=== PATIENT | female | born 1950 | race Caucasian/White ===

== ENCOUNTER 2019-06-25 08:06 | Outpatient (CLI) | payer MEDICARE, SELFPAY ==
--- NOTE | ~2019-06-25 | MM_ITS ---
EXAMINATION: MM screening [facility] BI w cathie HISTORY: Screening mammogram TECHNIQUE: Craniocaudal and mediolateral oblique 3-D tomosynthesis images were obtained and synthetic 2-D images were generated. CAD analysis was submitted and interpreted. COMPARISON: 10/11/2016, 09/15/2015, 09/02/2014 BREAST PARENCHYMAL COMPOSITION: There are scattered areas of fibroglandular density. FINDINGS: There is no evidence of suspicious mass, calcification, or architectural distortion to sugg est malignancy in either breast. There has been no suspicious interval change. IMPRESSION: 1. No mammographic evidence of malignancy. 2. Recommend routine screening mammography in one year. BI-RADS Category 1: Negative Reviewed, dictated and finalized at location A. O JOURNALIST
--- NOTE | ~2019-06-25 | DEXA_ITS ---
Bone Density Report Name: Manju Bedolla Age: 68 Sex: Female Ethnicity: White Date of : 1950 Indication: osteopenia; parental hip fracture; height loss; Referring Provider: Maurizio Bustamante Study: Bone densitometry was performed. Exam Date: June 25, 2019 Accession number: [id number] Bone Density: Region BMD T-score Z-score Classification AP Spine (L1-L4) 0.765 -2.6 -0.6 Osteoporosis Femoral Neck (Left) 0.578 -2.4 -0.8 Osteopenia Total Hip (Left) 0.754 -1.5 -0.2 Osteopenia Total Hip Bilateral Avg 0.750 -1.6 -0.3 Osteopenia Femoral Neck (Right) 0.621 -2.1 -0.4 Osteopenia Total Hip (Right) 0.744 -1.6 -0.3 Osteopenia World Health Organization criteria for BMD impression classify patients as: Normal (T-score at or above -1.0), Osteopenia (T-score between -1.0 and -2.5), or Osteoporosis (T-score at or below -2.5). 10-year Fracture Risk: FRAX not reported because: Some T-score for Spine Total or Hip Total or Femoral Neck at or below -2.5 Previous Exams: Region Exam Age BMD T-score BMD Change BMD Change Date g/cm2 vs Baseline vs Previous AP Spine(L1-L4) 06/25/2019 68 0.765 -2.6 -0.089(-10.4%) -0.020(-2.6%)# 10/20/2015 64 0.785 -2.4 -0.069(-8.1%)# -0.064(-7.6%)# 05/18/2010 59 0.849 -1.8 -0.005(-0.6%) -0.005(-0.6%) 03/08/2008 57 0.854 -1.8 Total Hip(Left) 06/25/2019 68 0.754 -1.5 -0.046(-5.8%)# -0.031(-3.9%)# 10/20/2015 64 0.784 -1.3 -0.016(-1.9%)# -0.010(-1.3%)# 05/18/2010 59 0.795 -1.2 -0.005(-0.7%) -0.005(-0.7%) 03/08/2008 57 0.800 -1.2 Total Hip(Right) 06/25/2019 68 0.744 -1.6 -0.037(-4.7%)# -0.022(-2.8%)# 10/20/2015 64 0.766 -1.4 -0.015(-2.0%)# -0.027(-3.4%)# 05/18/2010 59 0.792 -1.2 0.011(1.4%) 0.011(1.4%) 03/08/2008 57 0.781 -1.3 *Denotes significance at 95% confidence level, LSC for AP Spine = 0.022 g/cm2, LSC for Total Hip = 0.027 g/cm2 Clinical Information Provided by Patient: Parent has had a hip fracture Has used the following medications: Vitamin D, Calcium Patient maximum height was 64 Menopause Age: 56 No regular weight bearing exercise Drinks caffeinated beverages Onset of menses at age 15 Number of children 0 Impression: The patient has osteoporosis, based on the Total Spine T-score. The patient has risk factors, including: parental hip fracture. No significant bone loss was observed. Discussion: INCREASED RISK OF FRACTURE. BONE DENSITY IS UNDESIRABL
== END 2019-06-25 08:07 | disposition home or self-care (01) ==
LOC: ANHIMG 08:15
PROVIDERS: PCP Family Medicine; Visit Provider Physician Assistant Medical
DX: Z12.31 Encounter for screening mammogram for malignant neoplasm of breast (principal); Z78.0 Asymptomatic menopausal state; M85.89 Other specified disorders of bone density and structure, multiple sites; M81.0 Age-related osteoporosis without current pathological fracture
CPT/HCPCS: 77063; 77067; 77080

== ENCOUNTER 2021-02-09 07:55 | Outpatient (CLI) | payer MEDICARE, SELFPAY ==
--- NOTE | ~2021-02-09 | MM_ITS ---
EXAMINATION: MM screening [facility] BI w cathie HISTORY: Screening mammogram TECHNIQUE: Craniocaudal and mediolateral oblique 3-D tomosynthesis images were obtained and synthetic 2-D images were generated. CAD analysis was submitted and interpreted. COMPARISON: 06/25/2019, 10/11/2016, 09/15/2015 BREAST PARENCHYMAL COMPOSITION: There are scattered areas of fibroglandular density. FINDINGS: There is no evidence of suspicious mass, calcification, or architectural distortion to sugg est malignancy in either breast. There has been no suspicious interval change. IMPRESSION: 1. No mammographic evidence of malignancy. 2. Recommend routine screening mammography in one year. BI-RADS Category 1: Negative Reviewed, dictated and finalized at location A.
== END 2021-02-09 07:56 | disposition home or self-care (01) ==
LOC: ANHIMG 08:00
PROVIDERS: PCP Family Medicine; Visit Provider Physician Assistant Medical
DX: Z12.31 Encounter for screening mammogram for malignant neoplasm of breast (principal)
CPT/HCPCS: 77063; 77067

== ENCOUNTER 2021-12-21 14:42 | Outpatient (CLI) | payer MEDICARE, SELFPAY ==
--- NOTE | ~2021-12-21 | DEXA_ITS ---
Bone Density Report Name: GUERDA MUJICA Age: 71 Sex: Female Ethnicity: White Date of : 1950 Indication: postmenopausal osteoporosis; height loss; Referring Provider: PASCALE PAUL Study: Bone densitometry was performed. Exam Date: December 21, 2021 Accession number: [id number] Bone Density: Region BMD T-score Z-score Classification AP Spine(L1-L4) 0.780 -2.4 -0.3 Osteopenia Femoral Neck (Left) 0.605 -2.2 -0.4 Osteopenia Total Hip (Left) 0.721 -1.8 -0.3 Osteopenia Femoral Neck (Right) 0.609 -2.2 -0.4 Osteopenia Total Hip (Right) 0.726 -1.8 -0.3 Osteopenia Total Hip Mean 0.724 -1.8 -0.3 Osteopenia World Health Organization criteria for BMD impression classify patients as: Normal (T-score at or above -1.0), Osteopenia (T-score between -1.0 and -2.5), or Osteoporosis (T-score at or below -2.5). 10-year Fracture Risk(1): Major Osteoporotic Fracture 12% Hip Fracture 2.4% Reported Risk Factors: [place] (), Neck BMD=0.605, BMI=31.5 (1) FRAX(R) Version 3.08. Fracture probability calculated for an untreated patient. Fracture probability may be lower if the patient has received treatment. Previous Exams: Region Exam Age BMD T-score BMD Change BMD Change Date g/cm2 vs Baseline vs Previous AP Spine (L1-L4) 12/21/2021 71 0.780 -2.4 -0.005 (-0.6%) 0.015 (2.0%) 06/25/2019 68 0.765 -2.6 -0.020 (-2.6%) -0.020 (-2.6%) 10/20/2015 64 0.785 -2.4 Total Hip(Left) 12/21/2021 71 0.721 -1.8 -0.063 (-8.0%) -0.032 (-4.3%) 06/25/2019 68 0.754 -1.5 -0.031 (-3.9%) -0.031 (-3.9%) 10/20/2015 64 0.784 -1.3 Total Hip(Right) 12/21/2021 71 0.726 -1.8 -0.040 (-5.2%) -0.018 (-2.5%) 06/25/2019 68 0.744 -1.6 -0.022 (-2.8%) -0.022 (-2.8%) 10/20/2015 64 0.766 -1.4 *Denotes significance at 95% confidence level, LSC for AP Spine = 0.022 g/cm2, LSC for Total Hip = 0.027 g/cm2 # Denotes dissimilar scan types or analysis methods Clinical Information Provided by Patient: Has used the following medications: Vitamin D, Calcium Patient maximum height was 64 Menopause Age: 56 Drinks caffeinated beverages Onset of menses at age 13 Number of children 0 Impression: The patient has low bone mass, based on the Total Spine T-score. The patient has an estimated ten-year risk of hip fracture of 2.4% and an estimated ten-year risk of major fracture of 12%, based on the WHO FRAX algorithm. The BMD for
== END 2021-12-21 14:43 | disposition home or self-care (01) ==
LOC: ANHIMG 14:43
PROVIDERS: PCP Family Medicine; Visit Provider Family Medicine
DX: M81.0 Age-related osteoporosis without current pathological fracture (principal); N95.9 Unspecified menopausal and perimenopausal disorder; M85.88 Other specified disorders of bone density and structure, other site; M85.852 Other specified disorders of bone density and structure, left thigh; M85.851 Other specified disorders of bone density and structure, right thigh
CPT/HCPCS: 77080

== ENCOUNTER 2022-05-31 08:03 | Outpatient (CLI) | payer MEDICARE, SELFPAY ==
--- NOTE | ~2022-05-31 | MM_ITS ---
EXAMINATION: MM screening [facility] BI w cathie HISTORY: Screening mammogram TECHNIQUE: Craniocaudal and mediolateral oblique 3-D tomosynthesis images were obtained and synthetic 2-D images were generated. CAD analysis was submitted and interpreted. COMPARISON: 02/2021, 06/25/2019, 10/11/2016 bilateral screening mammogram examinations BREAST PARENCHYMAL COMPOSITION: There are scattered areas of fibroglandular density. FINDINGS: There is no evidence of suspicious mass, calcification, or architectural distortion to sugg est malignancy in either breast. There has been no suspicious interval change. IMPRESSION: 1. No mammographic evidence of malignancy. 2. Recommend routine screening mammography in one year. BI-RADS Category 1: Negative Reviewed, dictated and finalized at location C. CENTER CONSULTANT
== END 2022-05-31 08:04 | disposition home or self-care (01) ==
LOC: ANHIMG 08:06
PROVIDERS: PCP Family Medicine; Visit Provider Family Medicine
DX: Z12.31 Encounter for screening mammogram for malignant neoplasm of breast (principal)
CPT/HCPCS: 77063; 77067

== ENCOUNTER 2023-07-28 15:28 | Outpatient (CLI) | payer MEDICARE, SELFPAY ==
--- NOTE | ~2023-07-28 | MM_ITS ---
EXAMINATION: MM screening [facility] BI w cathie HISTORY: Screening TECHNIQUE: Craniocaudal and mediolateral oblique 3-D tomosynthesis images were obtained and synthetic 2-D images were generated. CAD analysis was submitted and interpreted. COMPARISON: Comparison to multiple prior studies sequentially, with oldest reviewed study dated 01/2016. BREAST PARENCHYMAL COMPOSITION: Not dense: There are scattered areas of fibroglandular density. FINDINGS: There is a low-density mass in the lower outer quadrant of the left breast anteriorly. The right breast is stable without evidence for malignancy. IMPRESSION: 1. Low-density left breast mass. 2. Additional mammographic views and possible breast ultrasound are recommended. BI-RADS CATEGORY 0 - INCOMPLETE STUDY, NEED ADDITIONAL IMAGING EVALUATION. Reviewed, dictated and finalized at location A. IMPRESSION: 1. Low-density left breast mass. 2. Additional mammographic views and possible breast ultrasound are recommended . BI-RADS CATEGORY 0 - INCOMPLETE STUDY, NEED ADDITIONAL IMAGING EVALUATION.
== END 2023-07-28 15:29 | disposition home or self-care (01) ==
PROVIDERS: PCP Family Medicine; Visit Provider Family Medicine
DX: Z12.31 Encounter for screening mammogram for malignant neoplasm of breast (principal); R92.8 Other abnormal and inconclusive findings on diagnostic imaging of breast
CPT/HCPCS: 77063; 77067

== ENCOUNTER 2023-08-26 12:21 | Outpatient (CLI) | payer MEDICARE, SELFPAY ==
--- NOTE | ~2023-08-26 | MMUS_ITS ---
EXAMINATION: MM diagnostic [facility] LT w cathie, US breast LT limited HISTORY: Follow-up left breast asymmetry TECHNIQUE: Additional 3-D tomosynthesis images of the left breast were performed and synthetic 2-D im ages were generated. CAD analysis was submitted and interpreted. High resolution Limited left breast ultrasound was performed. COMPARISON: 07/28/2023 BREAST PARENCHYMAL COMPOSITION: Not dense: There are scattered areas of fibroglandular density. FINDINGS: MAMMOGRAPHIC FINDINGS: Area of asymmetry is less dense with spot compression views, likely superimposed fibroglandular tissu e. No discrete mass or architectural distortion. There are no suspicious calcifications. ULTRASOUND: Limited left breast ultrasound: Normal heterogeneous echotexture without focal solid or cystic mass. IMPRESSION: 1. No evidence for malignancy in the left breast. 2. Routine yearly screening mammogram and regular clinical breast examination are recommended. BI-RADS Category 1: Negative Reviewed, dictated and finalized at location B. IMPRESSION: 1. No evidence for malignancy in the left breast. 2. Routine yearly screening mammogram and regular clinical breast examination a re recommended. BI-RADS Category 1: Negative
== END 2023-08-26 12:22 | disposition home or self-care (01) ==
LOC: ANHIMG 12:23
PROVIDERS: PCP Family Medicine; Visit Provider Family Medicine
DX: R92.8 Other abnormal and inconclusive findings on diagnostic imaging of breast (principal)
CPT/HCPCS: 76642; 77061; 77065; G0279

== ENCOUNTER 2024-04-16 18:28 | Emergency (ER) | payer MEDICARE, SELFPAY ==
--- NOTE | 2024-04-16 18:29 | ED_ITS ---
HPI - URI/Sore Throat General Chief Complaint: Upper Respiratory Infection Stated Complaint: Upper Respiratory Symptoms Time Seen by Provider: 04/16/24 18:29 Source: patient Mode of arrival: ambulatory Limitations: no limitations History of Present Illness HPI Narrative: Manju is a 73-year-old female patient presenting to the clinic today with complaints of possible upper respiratory infection. She reports she has had symptoms for approximately 8 days. Complaints of chest congestion, cough, and sinus pressure. Does feel short of breath when coughing. No Fever or chills. She is coughing some yellow phlegm. No history of COPD or asthma. MD elicited complaint: sore throat and nasal congestion Related Data Home Medications Medication Instructions Recorded Confirmed ascorbate calcium (vitamin C) 500 500 mg PO DAILY 04/18/19 12/13/23 mg tablet aspirin 81 mg tablet,delayed 81 mg PO DAILY 04/18/19 12/13/23 release (Aspir-) calcium carbonate (Calcium 500) 500 mg PO DAILY 04/18/19 12/13/23 multivitamin 1 cap PO DAILY 04/18/19 12/13/23 omega-3 fatty acids-vitamin E mg PO 04/18/19 12/13/23 1,000 mg capsule zinc 50 mg tablet (Chelated Zinc) 50 mg PO DAILY 04/18/19 12/13/23 magnesium 250 mg tablet 250 mg PO DAILY 05/27/20 12/13/23 Allergies Allergy/AdvReac Type Severity Reaction Status Date / Time No Known Allergies Allergy Verified 12/13/23 13:13 Review of Systems Review of Systems: Pertinent positives per HPI. Patient denies any fever, chills, rash, headache, visual changes, dizziness, chest pain, palpitations, nausea, vomiting, diarrhea, constipation, abdominal pain, or any urinary issues. [facility] Past Medical History Medical History Allergic rhinitis, cause unspecified [facility] Surgical History Surgical History H/O laparoscopy Family History Family History Grandparent Diabetes mellitus Mother Diabetes mellitus Depression Family history of elevated blood lipids Family history of dementia Father Hypertension Family history of elevated blood lipids Family history of cardiovascular disease Acute myocardial infarction Family history of malignant neoplasm of bone Family history of coronary artery disease Social History Social History Smoking status: Never smoker Second hand tobacco smoke exposure: No Alcohol intake: current Alcohol use details: occasionally Substance use: never Substance use type: does not use Do You Feel Safe in your Home?: Yes Lack of Transportation: No Lack of Food: Never True Current Housing: I Have Housing Concerned About Future Housing: No Difficulty Paying Gas/Electric Bills: No Difficulty Paying for Meds: No Currently Unemployed: No Education: High School Diploma/GED Difficulty w/ Childcare or Family Care: No Living arrangements: with family Occupation/Education: occupation Gender identity (if verbalized by the patient): Female Spiritual care concerns: Yes (Nondenominational) Agree to blood products: Yes Comments At the time of my signature, I reviewed and agree with the nursing past medical, surgical, social, and family history. There is no relevant family history pertinent to the patient complaint. Exam Narrative: General: Well-developed, well nourished, in no apparent distress Head: Normocephalic, atraumatic Eyes: Pupils equally round and reactive to light bilaterally, EOM intact, sclera and conjunctive clear, no discharge, lids normal Ears: TMs intact and clear, ear canals clear, no drainage, grossly hearing normal. Nose: Nares patent, clear nasal discharge, no inflammation, no sinus tenderness. Mouth: Oral pharynx without lesions or masses, good dentition, MMM. Neck: Supple, trachea midline, no enlargement of anterior or posterior cervical nodes, no thyroid masses or goiter palpable. Cardio: Regular rate and rhythm, s1 and s2 normal, no murmur appreciated. Resp: Clear to auscultation bilaterally, no rhonchi, rales, wheezing or rubs Course Course Emergency Course: Portions of this record may have been created with voice recognition software. Level of Care: Express Care Visit Vital Signs Vital signs: Vital signs reviewed MDM - URI/Sore Throat MDM Narrative Medical decision making narrative: At the time of visit patient is resting comfortably on the exam table. Patient appears to be nontoxic. Plan: I suspect patient has sinusitis/bronchitis. Prescription for azithromycin, prednisone, and albuterol inhaler was sent to the pharmacy. Supportive measures were discussed with the patient and they voiced understanding discharge instructions and agrees to treatment plan. Return precautions reviewed Differential Diagnosis Differential diagnosis: Likely upper respiratory infection, otitis media, sinusitis, viral infection, bronchitis, influenza, pharyngitis and other (COVID) Discharge Plan Discharge Clinical Impression: Sinusitis, Bronchitis Patient Disposition: Home, Self-Care Condition: Stable Instructions: Antibiotic Form, Sinusitis (ED), Acute Bronchitis (ED) Additional Instructions: Take prescription medications only as prescribed-azithromycin, prednisone, and albuterol inhaler. Increase fluids and stay well hydrated Tylenol/motrin for pain/fever Flonase and OTC antihistamines as directed Vicks vapor rub to open sinuses Sinus rinses for congestion Cepacol spray, cough drops, throat lozenges, warm tea with honey/lemon, gargle salt water to soothe throat BRAT diet for diarrhea Clear liquids x 24 hours then advance as tolerated for nausea/vomiting Go to the ED if you develop a worsening in your condition- high fever not controlled by Tylenol or Motrin, dehydration, weakness, lethargy, shortness of breath, or chest pain. Follow up with your PCP in 3-5 days if symptoms persist. Prescriptions: New azithromycin 250 mg tablet See Rx Instructions .ROUTE .COMPLEX Qty: 6 0RF Rx Instructions: For 250 mg dose pack: take 500 mg today (day 1), then 250 mg for 4 days (days 2-5) prednisone 20 mg tablet 40 mg PO DAILY 5 Days Qty: 10 0RF albuterol sulfate 90 mcg/actuation HFA aerosol inhaler 2 puff inhalation Q4-6H PRN (Reason: shortness of breath or wheezing) 30 Days Qty: 8.5 0RF No Action aspirin [Aspir-81] 81 mg tablet,delayed release (DR/EC) 81 mg PO DAILY calcium carbonate [Calcium 500] 500 mg calcium (1,250 mg) tablet,chewable 500 mg PO DAILY omega-3 fatty acids-vitamin E 1,000 mg capsule PO multivitamin Capsule 1 cap PO DAILY ascorbate calcium (vitamin C) 500 mg tablet 500 mg PO DAILY zinc [Chelated Zinc] 50 mg tablet 50 mg PO DAILY magnesium 250 mg tablet 250 mg PO DAILY clonazepam 1 mg tablet 1 mg PO QHS 30 Days Qty: 30 5RF lisinopril 10 mg tablet 10 mg PO DAILY Qty: 90 1RF pravastatin 20 mg tablet 20 mg PO DAILY Qty: 90 1RF Follow-up/Referrals: Jessie Brody MD [Primary Care Provider] - Time of Disposition: 18:45 Quality NIHSS Nursing Documentation ED NIHSS nursing documentation: reviewed/agree
[2024-04-16 18:43] VITALS: BP 165/70; PULSE 79; RESP 16; TEMP 36.3; O2SAT 99
== END 2024-04-16 18:54 | disposition home or self-care (01) ==
PROVIDERS: Emergency Provider Nurse Practitioner Family; PCP Family Medicine
DX: J32.9 Chronic sinusitis, unspecified (principal); J40 Bronchitis, not specified as acute or chronic
CPT/HCPCS: 99203; G0463

== ENCOUNTER 2024-08-08 10:58 | Outpatient (CLI) | payer MEDICARE, SELFPAY ==
--- NOTE | ~2024-08-08 | DEXA_ITS ---
Bone Density Report Name: GUERDA MUJICA Age: 73 Sex: Female Ethnicity: White Date of : 1950 Indication: osteopenia; parental hip fracture; height loss; Referring Provider: PASCALE PAUL Study: Bone densitometry was performed. Exam Date: August 08, 2024 Accession number: [id number] Bone Density: Region BMD T-score Z-score Classification AP Spine(L1-L4) 0.768 -2.5 -0.3 Osteoporosis Femoral Neck (Left) 0.615 -2.1 -0.2 Osteopenia Total Hip (Left) 0.682 -2.1 -0.5 Osteopenia Femoral Neck (Right) 0.589 -2.3 -0.4 Osteopenia Total Hip (Right) 0.698 -2.0 -0.3 Osteopenia Total Hip Mean 0.690 -2.1 -0.4 Osteopenia World Health Organization criteria for BMD impression classify patients as: Normal (T-score at or above -1.0), Osteopenia (T-score between -1.0 and -2.5), or Osteoporosis (T-score at or below -2.5). 10-year Fracture Risk: FRAX not reported because: Some T-score for Spine Total or Hip Total or Femoral Neck at or below -2.5 Previous Exams: Region Exam Age BMD T-score BMD Change BMD Change Date g/cm2 vs Baseline vs Previous Total Hip(Left) 08/08/2024 73 0.682 -2.1 -0.103 (-13.1% -0.040 (-5.5%) 12/21/2021 71 0.721 -1.8 -0.063 (-8.0%) -0.032 (-4.3%) 06/25/2019 68 0.754 -1.5 -0.031 (-3.9%) -0.031 (-3.9%) 10/20/2015 64 0.784 -1.3 Total Hip(Right) 08/08/2024 73 0.698 -2.0 -0.068 (-8.9%) -0.028 (-3.8%) 12/21/2021 71 0.726 -1.8 -0.040 (-5.2%) -0.018 (-2.5%) 06/25/2019 68 0.744 -1.6 -0.022 (-2.8%) -0.022 (-2.8%) 10/20/2015 64 0.766 -1.4 *Denotes significance at 95% confidence level, LSC for Total Hip = 0.027 g/cm2 # Denotes dissimilar scan types or analysis methods Clinical Information Provided by Patient: Parent has had a hip fracture Has used the following medications: Calcium Patient maximum height was 64 Menopause Age: 56 No regular weight bearing exercise Drinks caffeinated beverages Onset of menses at age 13 Number of children 0 Impression: The patient has osteoporosis, based on the Total Spine T-score. The patient has risk factors, including: parental hip fracture. The BMD for the Total Hip(Left) decreased, changing by -5.5% since the last DXA exam. The BMD for the Total Hip(Right) decreased, changing by -3.8% since the last DXA exam. Discussion: INCREASED RISK OF FRACTURE. BONE DENSITY IS UNDESIRABLY LOW AT ONE OR MORE SKELETAL SITES, CONSISTENT WITH POSTMENOPAUSAL OSTEOPOROSIS. This patient's lowest T-score meets the World Health Organization's (WHO) criteria for osteoporosis at one or more sites (T-score -2.5 or below). In untreated patients, the risk of osteoporotic fracture increases approximately two-fold for each 1.0 SD decrease in T-score. Low bone density is not the only risk factor for fracture; also consider factors such as patient's age, frailty or poor health, risk of falling, risk of injury, previous osteoporotic fracture, family history of osteoporosis, cigarette smoking, low body weight, etc. Not everyone with low bone mineral density has osteoporosis; osteomalacia and other metabolic bone disorders should also be considered. Patients who have osteoporosis should be evaluated for specific diseases and conditions (secondary causes) that may cause or contribute to bone loss. The [place] [employer]ocrin[employer] (AACE) and National Osteoporosis Foundation (NOF) recommend pharmacologic intervention for all postmenopausal women whose T-score is in this range. The patient should follow a healthful lifestyle (good nutrition with adequate calcium and vitamin D, and appropriate weight-bearing exercise). Follow-Up: Consider a repeat BMD and Vertebral Fracture Assessment (VFA) exam in 2 years or sooner if medically necessary, to reassess this patient's status. Reported by: BRITTON on 08/08/2024 11:30:00 AM. Reviewed, dictated and finalized at location AZully AGUILERA
== END 2024-08-08 10:59 | disposition home or self-care (01) ==
LOC: ANHIMG 10:59
PROVIDERS: PCP Family Medicine; Visit Provider Family Medicine
DX: M81.0 Age-related osteoporosis without current pathological fracture (principal); M85.89 Other specified disorders of bone density and structure, multiple sites; Z78.0 Asymptomatic menopausal state
CPT/HCPCS: 77080

== ENCOUNTER 2024-10-26 07:34 | Outpatient (CLI) | payer MEDICARE, SELFPAY ==
--- NOTE | ~2024-10-26 | MM_ITS ---
EXAMINATION: MM screening [facility] BI w cathie HISTORY: Screening TECHNIQUE: Craniocaudal and mediolateral oblique 3-D tomosynthesis images were obtained and synthetic 2-D images were generated. CAD analysis was submitted and interpreted. COMPARISON: Comparison to multiple prior studies sequentially, with oldest reviewed study dated 09/2016. BREAST PARENCHYMAL COMPOSITION: Not dense: There are scattered areas of fibroglandular density. FINDINGS: There is no evidence of suspicious mass, calcification, or architectural distortion to sugg est malignancy in either breast. There has been no suspicious interval change. IMPRESSION: 1. No mammographic evidence of malignancy. 2. Recommend routine screening mammography in one year. BI-RADS Category 1: Negative Reviewed, dictated and finalized at location A.
== END 2024-10-26 07:35 | disposition home or self-care (01) ==
LOC: ANHIMG 07:36
PROVIDERS: PCP Family Medicine; Visit Provider Family Medicine
DX: Z12.31 Encounter for screening mammogram for malignant neoplasm of breast (principal)
CPT/HCPCS: 77063; 77067